=== PATIENT | female | born 1980 | race Asian ===

== ENCOUNTER 2017-03-04 01:30 | Inpatient (IN) | payer SELFPAY ==
[~2017-03-04] VITALS: Ht 160 cm; Wt 60.3 kg
[2017-03-04] MEDS ORDERED: LACTATED RINGERS 1,000 ML IV SCH (02:43)
[2017-03-04] MEDS ORDERED: IBUPROFEN 800 MG TAB PO PRN ×2 (02:45→05:40)
[2017-03-04] MEDS ORDERED: CITRIC ACID/SODIUM CITRATE 30 ML UDC PO ONE (02:45)
[2017-03-04 03:08] LABS: APPEARANCE,URINE CLOUDY (CLEAR); BILIRUBIN,URINE NEGATIVE (NEGATIVE); BLOOD, URINE 3+ (NEGATIVE); COLOR,URINE YELLOW (YELLOW); LEUKOCYTE ESTERASE ,URINE 2+ (NEGATIVE); NITRITE, URINE NEGATIVE (NEGATIVE); PROTEIN,URINE NEGATIVE (NEGATIVE); UGLUCOSE NEGATIVE (NEGATIVE); UROBILINOGEN,URINE 0.2 EU/dL (0.2 - 1)
[2017-03-04 03:08] LABS: HEMATOCRIT 34.2 % (36-48); HEMOGLOBIN 10.6 g/dL (12.0-16.0); MEAN CORPUSCULAR HEMOGLOBIN 24 pg (27-31); MEAN CORPUSCULAR HGB CONC 31 g/dL (33-37); MEAN CORPUSCULAR VOLUME 78 fL (80-94); PLATELET COUNT (AUTO) 305 K/uL (140-450); RED BLOOD CELL COUNT(AUTO) 4.39 MIL/uL (4.20-5.40); RED CELL DISTRIBUTION WIDTH 17.1 % (11.6-13.7); WHITE BLOOD COUNT (AUTO) 12.8 K/uL (4.8-10.8)
[2017-03-04] MEDS ORDERED: OXYTOCIN 10 UNITS/ML VIAL ONE ×2 (03:11→03:29)
[2017-03-04] MEDS ORDERED: TRIAMCINOLONE 10 MG/ML 5ML VIAL ONE (03:12)
[2017-03-04 03:24] LABS: ALBUMIN 2.8 g/dL (3.4-5.0); ANION GAP 12.5 (8-16); CALCIUM 8.9 mg/dL (8.5-10.1); CARBON DIOXIDE 25.5 mmol/L (21-32); CREATININE 0.6 mg/dL (0.6-1.3); TOTAL BILIRUBIN 0.2 mg/dL (0.0-1.0); TOTAL PROTEIN, SERUM 6.8 g/dL (6.4-8.2)
[2017-03-04] MEDS ORDERED: BUPIVACAINE-MPF 0.75% 10 ML VIAL INJ ONE (03:29)
[2017-03-04] MEDS ORDERED: ePHEDrine 50 MG/ML VIAL ONE (03:29)
[2017-03-04] MEDS ORDERED: ceFAZolin 1,000 MG VIAL ONE (03:34)
[2017-03-04] MEDS ORDERED: MORPHINE PRES FREE 10 MG/10 ML AMP IV ONE (03:41)
[2017-03-04] MEDS ORDERED: fentaNYL 0.05 MG/ML VIAL ONE (03:41)
[2017-03-04] MEDS ORDERED: diphenhydrAMINE 50 MG/ML VIAL IVP PRN (03:55)
[2017-03-04] MEDS ORDERED: ONDANSETRON 4 MG/2 ML VIAL IVP PRN ×2 (03:55)
[2017-03-04] MEDS ORDERED: NALOXONE 0.4 MG/ML VIAL IVP PRN ×3 (03:55)
[2017-03-04] MEDS ORDERED: KETOROLAC 60 MG/2 ML VIAL IM PRN (03:55)
[2017-03-04] MEDS ORDERED: NALBUPHINE 10 MG/ML AMP IVP PRN (03:55)
[2017-03-04 04:04] VITALS: BP 98/60
[2017-03-04 04:05] LABS: BAND % (MANUAL) 25 % (0-8); LYMPHOCYTES % (MANUAL) 17 % (20-46); MONOCYTES % (MANUAL) 4 % (5-12); NEUTROPHILS % (MANUAL) 54 (43-65)
[2017-03-04] MEDS ORDERED: TRIMETHOBENZAMIDE 200 MG/2 ML SYR IM PRN ×2 (05:40)
[2017-03-04] MEDS ORDERED: HYDROcodone/APAP 5/325 MG 1 TAB TAB PO PRN (05:40)
[2017-03-04] MEDS ORDERED: SIMETHICONE 80 MG TAB.CHEW PO PRN (05:40)
[2017-03-04] MEDS ORDERED: MEASLES, MUMPS, AND RUBELLA 1 VIAL SQVAC PRN ×2 (05:40)
[2017-03-04] MEDS ORDERED: TEMAZEPAM 15 MG CAP PO PRN ×2 (05:40)
[2017-03-04] MEDS ORDERED: METHYLERGONOVINE 0.2 MG/ML AMP IM PRN (05:40)
[2017-03-04] MEDS ORDERED: oxyCODONE/APAP 5/325 MG 1 TAB TAB PO PRN (05:40)
[2017-03-04 07:09] LABS: BACTERIA,URINE FEW /HPF (None Seen)
--- NOTE | 2017-03-04 07:48 | NUR ---
PATIENT HAS BEEN SCREENED AND CATEGORIZED LOW NUTRITION RISK. PATIENT WILL BE SEEN WITHIN 7 DAYS OF ADMISSION. 03/10/[address]
[2017-03-04] MEDS: OXYTOCIN 20 UNITS/LR PREMIX 1,000 ML IV SCH ×2 (09:20→17:48)
[2017-03-04] MEDS ORDERED: DOCUSATE SOD/SENNA 50/8.6 MG 1 TAB PO SCH (21:00)
[2017-03-05 06:12] LABS: HEMATOCRIT 25.3 % (36-48); HEMOGLOBIN 7.9 g/dL (12.0-16.0); MEAN CORPUSCULAR HEMOGLOBIN 24 pg (27-31); MEAN CORPUSCULAR HGB CONC 31 g/dL (33-37); MEAN CORPUSCULAR VOLUME 78 fL (80-94); PLATELET COUNT (AUTO) 249 K/uL (140-450); RED BLOOD CELL COUNT(AUTO) 3.25 MIL/uL (4.20-5.40); RED CELL DISTRIBUTION WIDTH 17.6 % (11.6-13.7); WHITE BLOOD COUNT (AUTO) 18.5 K/uL (4.8-10.8)
[2017-03-05 07:34] LABS: MONOCYTES % (MANUAL) 2 % (5-12); PLATELET ESTIMATE ADEQUATE
[2017-03-05 07:36] LABS: LYMPHOCYTES % (MANUAL) 6 % (20-46)
[2017-03-05 07:38] LABS: BAND % (MANUAL) 19 % (0-8); NEUTROPHILS % (MANUAL) 73 (43-65)
[2017-03-05] MEDS ORDERED: METOCLOPRAMIDE 10 MG TAB PO SCH (11:30)
[2017-03-05] MEDS: METOCLOPRAMIDE 10 MG TAB PO PRN ×2 (11:44→17:24)
[2017-03-05] MEDS: SIMETHICONE 80 MG TAB.CHEW PO PRN ×3 (13:18→22:20)
[2017-03-06] MEDS ORDERED: IBUP-2213 PO (11:02)
== END 2017-03-06 14:45 | disposition home or self-care (01) | DRG 766 ==
LOC: MFCC 01:30 → MLD 02:15 → MFCC 05:20
PROVIDERS: ADMIT Obstetrics & Gynecology; ATTEND Obstetrics & Gynecology
PROC: 10D00Z1 Extraction of Products of Conception, Low, Open Approach (ICD-10-PCS; principal; 2017-03-04 04:00)
DX: O34.211 Maternal care for low transverse scar from previous cesarean delivery (principal); Z37.0 Single live birth; Z3A.38 38 weeks gestation of pregnancy; O09.523 Supervision of elderly multigravida, third trimester; O09.293 Supervision of pregnancy with other poor reproductive or obstetric history, third trimester; Z28.21 Immunization not carried out because of patient refusal
CPT/HCPCS: 36415; 80053; 81001; 85025; 86592; 86886; 86900; 86901; 87086; J0690; J2270; J2590; J3010; J3301; J3490; J7060; J7120; J8597